=== PATIENT | male | born 1965 | race Caucasian/White ===

== ENCOUNTER 2020-10-20 11:11 | Outpatient (REF) | payer OTHER, SELFPAY ==
[2020-10-20 12:56] LABS: MANUAL DIFF FLAG NO
[2020-10-20 12:59] LABS: Basophils Percent Auto 0.4 % (0-2); Eosinophils Percent Auto 0.4 % (0-4); Hematocrit 41.1 % (42-52); Hemoglobin 13.9 g/dl (14.0-18.0); Lymphocytes Absolute Auto 1.1 X10*3/uL (1.2-4.9); Lymphocytes Percent Auto 42.8 % (20-40); Mean Corpuscular HGB Conc 33.8 g/dl (31.0-36.0); Mean Corpuscular Hemoglobin 29.7 pg (27.0-33.0); Mean Corpuscular Volume 87.8 fL (80-98); Mean Platelet Volume 8.9 fL (9.4-12.4); Monocytes Absolute Auto 0.3 X10*3/uL (0.1-1.2); Monocytes Percent Auto 9.7 % (2-11); Neutrophils Absolute Auto 1.2 X10*3/uL (2.0-8.3); Neutrophils Percent Auto 46.7 % (45-73); Platelet Count 154 X10*3/uL (160-400); Red Blood Count 4.68 X10*6/uL (4.60-5.80); Red Cell Distribution Width 12.7 % (11.0-16.0); White Blood Count 2.6 X10*3/uL (4.8-10.8)
[2020-10-20 13:23] LABS: Alanine Aminotransferase 44 U/L (0-40); Albumin Level 4.6 g/dL (3.5-5.0); Alkaline Phosphatase 63 U/L (39-117); Amylase 59 U/L (28-100); Anion Gap 12 (12-20); Aspartate Amino Transferase 25 U/L (5-37); Bilirubin Total 0.5 mg/dL (0.0-1.0); Blood Urea Nitrogen 15 mg/dL (9-16); Calcium 9.6 mg/dL (8.4-10.2); Carbon Dioxide 29 mmol/L (22-29); Chloride 104 mmol/L (96-108); Estimated Glomerular Filt Rate > 60; Glucose Random 114 mg/dL (60-115); Lipase 31 U/L (8-78); Potassium 4.1 mmol/L (3.3-5.1); Sodium 141 mmol/L (135-145); Total Protein 7.1 g/dL (6.5-8.0)
== END 2020-10-20 11:12 | disposition home or self-care (01) ==
LOC: HO.MANLDS 11:11
PROVIDERS: PCP Internal Medicine; Visit Provider Physician Assistant
DX: Z00.00 Encounter for general adult medical examination without abnormal findings (principal); K82.8 Other specified diseases of gallbladder
CPT/HCPCS: 36415; 80053; 82150; 83690; 85025

== ENCOUNTER 2020-10-26 08:42 | Outpatient (REF) | payer OTHER, SELFPAY ==
[2020-10-26 11:44] LABS: Cholesterol 173 mg/dL; HDL Cholesterol 41 mg/dL; LDL Cholesterol Calculated 105 mg/dl; Triglycerides 138 mg/dL
== END 2020-10-26 08:43 | disposition home or self-care (01) ==
LOC: HO.MANLDS 08:42
PROVIDERS: PCP Internal Medicine; Visit Provider Physician Assistant
DX: Z00.00 Encounter for general adult medical examination without abnormal findings (principal)
CPT/HCPCS: 36415; 80061

== ENCOUNTER 2022-02-27 08:32 | Outpatient (REF) | payer OTHER, SELFPAY ==
[2022-02-27 11:05] LABS: MANUAL DIFF FLAG NO
[2022-02-27 11:10] LABS: Basophils Percent Auto 0.4 % (0-2); Eosinophils Percent Auto 0.4 % (0-4); Hematocrit 42.2 % (42.0-52.0); Hemoglobin 14.1 g/dl (14.0-18.0); Lymphocytes Absolute Auto 1.5 X10*3/uL (1.2-4.9); Lymphocytes Percent Auto 51.6 % (20-40); Mean Corpuscular HGB Conc 33.4 g/dl (31.0-36.0); Mean Corpuscular Hemoglobin 29.3 pg (27.0-33.0); Mean Corpuscular Volume 87.7 fL (80.0-98.0); Mean Platelet Volume 8.7 fL (9.4-12.4); Monocytes Absolute Auto 0.3 X10*3/uL (0.1-1.2); Monocytes Percent Auto 12.1 % (2-11); Neutrophils Percent Auto 35.5 % (45-73); Platelet Count 171 X10*3/uL (160-400); Red Blood Count 4.81 X10*6/uL (4.60-5.80); Red Cell Distribution Width 12.5 % (11.0-16.0); White Blood Count 2.8 X10*3/uL (4.8-10.8)
[2022-02-27 11:15] LABS: Estimated Average Glucose 117 mg/dL; Hemoglobin A1c % 5.7 %
[2022-02-27 11:28] LABS: Alanine Aminotransferase 60 U/L (0-40); Albumin Level 4.5 g/dL (3.5-5.0); Alkaline Phosphatase 75 U/L (39-117); Amylase 54 U/L (28-100); Anion Gap 12 (12-20); Aspartate Amino Transferase 30 U/L (5-37); Bilirubin Total 0.6 mg/dL (0.0-1.0); Blood Urea Nitrogen 17 mg/dL (9-16); C Reactive Protein 0.31 mg/dL (< or = 0.50); Calcium 9.4 mg/dL (8.4-10.2); Carbon Dioxide 30 mmol/L (22-29); Chloride 104 mmol/L (96-108); Cholesterol 202 mg/dL; Estimated Glomerular Filt Rate > 60; Glucose Random 120 mg/dL (60-115); HDL Cholesterol 40 mg/dL; LDL Cholesterol Calculated 130 mg/dl; Lactate Dehydrogenase 147 U/L (118-273); Lipase 30 U/L (8-78); Potassium 3.8 mmol/L (3.3-5.1); Sodium 142 mmol/L (135-145); Triglycerides 163 mg/dL
[2022-02-27 11:51] LABS: Erythrocyte Sedimentation Rate 10 MM/HR (0-15)
== END 2022-02-27 08:33 | disposition home or self-care (01) ==
LOC: HO.MANLDS 08:32
PROVIDERS: Visit Provider Physician Assistant
DX: Z00.00 Encounter for general adult medical examination without abnormal findings (principal); R10.12 Left upper quadrant pain
CPT/HCPCS: 36415; 80053; 80061; 82150; 83036; 83615; 83690; 85025; 85652; 86140

== ENCOUNTER 2024-10-28 14:33 | Outpatient (AMB) | payer OTHER, SELFPAY ==
--- OUTSIDE RECORDS SUMMARY | 2024-10-28 15:54 | XMS_ITS | Encounter Summary ---
Author Organization [facility] Address [address] [place] [address] Phone Care Team Providers Care Rivet Sticker Name Role Phone JaquelinAsher carballo Primary Care Provider [phone] Alfreda Rabago Primary Care Provider [phone] Asher Navas DO Primary Care Provider [phone] Encounter Details Date Type Department Care Team (Latest Contact Info) Description 03/18/2018 Transcribe Orders [facility] [address] [place] [address] Lamar Morgan PA-C [address] [place] [address] Gastroesophageal reflux disease, esophagitis presence not specified (Primary Dx); Hyperlipidemia, unspecified hyperlipidemia type; Routine general medical examination at a health care facility Social History Tobacco Use Types Packs/Day Years Used Date Smoking Tobacco: Never Smokeless Tobacco: Never Alcohol Use Standard Drinks/Week Comments Yes 4 (1 standard drink = 0.6 oz pur e alcohol) Sex and Gender Information Value Date Recorded Sex Assigned at Male 09/26/2019 11:04 AM EDT Legal Sex Male 9:38 PM EDT Gender Identity Male 09/26/2019 11:04 AM EDT Sexual Orientation Straight 09/26/2019 11 :04 AM EDT documented as of this encounter Plan of Treatment Not on file documented as of this encounter Results * PSA (screening) (03/18/2018 9:52 AM EST) PSA 1.20 0 - 4.00 ng/mL [facility] Blood 03/18/2018 9:52 AM EST 03/18/2018 9:58 AM EST June Eddie GOANA LAB BLOOD ORDERABLES Final R esult [facility] [address] [place] [address] * (ABNORMAL) CBC and differential (03/18/2018 9:52 AM EST) WBC 2.48(L) 3.40 - 11.20 K/uL [facility] RBC 4.97 4.50 - 5.50 M/uL [facility] HGB 15.0 13.0 - 17.0 g/dL [facility] HCT 45.5 40.0 - 51.0 % [facility] PLT 176 130 - 400 K/uL [facility] MCV 91.5 79.0 - 98.0 [facility] MCH 30.2 27.0 - 34.8 pg [facility] MCHC 33.0 31.5 - 36.0 g/dL [facility] RDW 12.9 10.8 - 14.6 % [facility] MPV 8.6(L) 9.4 - 12.4 [facility] NRBC 0.00 0.00 /100 WBCs [facility] ABSOLUTE NRBC 0.00 0.00 K/uL [facility] DIFF METHOD Auto [facility] NEUTS 46.4 45.30 - 77.70 % [facility] LYMPHS 41.9(H) 12.30 - 39.70 % [facility] MONOS 10.5 4.10 - 12.80 % [facility] EOS 0.8 0 - 7.2 % [facility] BASOS 0.4 0 - 2.80 % [facility] Granulocytes, immature (%) 0.0 0.0 - 0.9 % [facility] ABSOLUTE NEUTS 1.15(L) 1.40 - 7.70 K/uL [facility] ABSOLUTE LYMPHS 1.04 0.60 - 3.20 K/uL [facility] ABSOLUTE MONOS 0.26 0.11 - 0.59 K/uL [facility] ABSOLUTE EOS 0.02 0.01 - 0.50 K/uL [facility] ABSOLUTE BASOS 0.01 0.00 - 0.08 K/uL [facility] Granulocytes, immature 0.00 0.00 - 0.05 K/uL [facility] Blood 03/18/2018 9:52 AM EST 03/18/2018 9:58 AM EST June Eddie GAONA LAB BLOOD ORDERABLES Final R esult [facility] [address] [place] [address] * (ABNORMAL) Comprehensive metabolic panel (03/18/2018 9:52 AM EST) SODIUM 142 133 - 146 mmol/L [facility] POTASSIUM 3.9 3.3 - 5.1 mmol/L [facility] CHLORIDE 98 96 - 108 mmol/L [facility] CO2 30 21 - 35 mmol/L [facility] BUN 17 6 - 19 mg/dL [facility] CREATININE 0.70 0.5 - 1.5 mg/dL [facility] GLUCOSE 103(H) 70 - 99 mg/dL [facility] ALBUMIN 4.9(H) 3.9 - 4.8 g/dL [facility] TOTAL PROTEIN 7.6 6.5 - 8.0 g/dL [facility] CALCIUM 9.8 8.4 - 10.3 mg/dL [facility] ALKALINE PHOSPHATASE 77 39 - 117 U/L [facility] TOTAL BILIRUBIN 0.5 0.0 - 1.2 mg/dL [facility] AST 26 0 - 37 U/L [facility] ALT 41(H) 0 - 40 U/L [facility] GLOBULIN 2.7 1 - 4.8 g/dL [facility] EGFR 110 >59 mL/min/1.7 3m2 [facility] Comment:If patient is black, multiply result by 1.159. Estimated glomerular filtration rate calculated using the CKD-EPI equation. ANION GAP 18 10 - 20 mmol/L [facility] Blood 03/18/2018 9:52 AM EST 03/18/2018 9:58 AM EST us Lamar Morgan PA-C LAB BLOOD ORDERABLES Final R esult Performing Organization Address City/[facility]/ZIP Co de Phone Number [address] [address] * (ABNORMAL) Lipid panel (03/18/2018 9:52 AM EST) HDL 54 mg/dL [facility] Comment: Interpretation <40 mg/dL: Low HDL cholesterol (major risk factor for CHD) Greater than or equal to 60 mg/dL: High HDL cholesterol ( negative risk factor for CHD) HDL - cholesterol is affected by a number of factors, e.g. smoking, excerise, hormones, sex and age. CHOLESTEROL 214 0 - 240 mg/dL [facility] TRIGLYCERIDES 130 30 - 160 mg/dL [facility] LDL 134(H) 50 - 129 mg/dL [facility] Comment: LDL levels in terms of risk for coronary heart disease: <100 mg/dL: Optimal 100-129 mg/dL: Near or above optimal 130-159 mg/dL: Borderline high 160-189 mg/dL: High >190 mg/dL: Very High CARDIAC RISK RATIO 4.0 3.4 - 5.0 C [facility] Blood 03/18/2018 9:52 AM EST 03/18/2018 9:58 AM EST us Lamar Eddie GAONA LAB BLOOD ORDERABLES Final R esult [address] [address] * Vitamin B12 (03/18/2018 9:52 AM EST) VITAMIN B12 581 232 - 1,245 pg/mL [facility] Blood 03/18/2018 9:52 AM EST 03/18/2018 9:58 AM EST us Lamar Morgan PA-C LAB BLOOD ORDERABLES Final R esult [facility] [address] [place] [address] documented in this encounter Visit Diagnoses Diagnosis Gastroesophageal reflux disease, esophagitis presence not specified- Primary Hyperlipidemia, unspecified hyperlipidemia type Routine general medical examination at a health care facility documented in this encounter Care Teams Rivet Sticker Relationship Specialty Start Date End Date Asher Navas DO PCP - General 03/15/17 01/07/20 Alfreda Rabago PA 6 [facility] [place] [address] PCP - General 01/08/20 03/15/22 Asher Navas DO [address] [place] [address] PCP - General Internal Medicine 03/16/22 documented as of this encounter Additional Source Comments The information contained in this document represents components of the legal health record. It is not the complete legal health record.[facility]
== END 2024-10-28 14:36 | disposition home or self-care (01) ==
LOC: HO.HMGAL 14:33
PROVIDERS: PCP Internal Medicine; Visit Provider Registered Nurse Emergency
DX: J30.89 Other allergic rhinitis (principal)
CPT/HCPCS: 95117; 95165

== ENCOUNTER 2025-02-02 09:18 | Outpatient (AMB) | payer OTHER, SELFPAY ==
--- OUTSIDE RECORDS SUMMARY | 2025-02-02 10:22 | XMS_ITS | Encounter Summary ---
Author Organization [facility] Address [address] [place] [address] Phone Care Team Providers Care Electric Motor Assembler And Tester Name Role Phone JaquelinAsher carballo Chu PALMA Primary Care Provider [phone] Alfreda Rabago Primary Care Provider [phone] Asher Navas DO Primary Care Provider [phone] Encounter Details Date Type Department Care Team (Latest Contact Info) Description 03/18/2018 Transcribe Orders [address] [address] Lamar Morgan PA-C [address] [place] [address] [email or web address] Gastroesophageal reflux disease, esophagitis presence not specified [...] EST) PSA 1.20 0 - 4.00 ng/mL [facility] Blood 03/18/2018 9:52 AM EST 03/18/2018 9:58 AM EST June Eddie GAONA LAB BLOOD BKR ORDERABLES Fin al Result [address] [address] * (ABNORMAL) CBC and differential (03/18/2018 9:52 AM EST) WBC 2.48(L) 3.40 - 11.20 K/uL [facility] RBC 4.97 4.50 - 5.50 M/uL [facility] HGB 15.0 13.0 - 17.0 g/dL [facility] HCT 45.5 40.0 - 51.0 % [facility] PLT 176 130 - 400 K/uL [facility] MCV 91.5 79.0 - 98.0 fL [facility] MCH 30.2 27.0 - 34.8 pg [facility] MCHC 33.0 31.5 - 36.0 g/dL [facility] RDW 12.9 10.8 - 14.6 % [facility] MPV 8.6(L) 9.4 - 12.4 fl [facility] NRBC 0.00 0.00 /100 WBCs [facility] ABSOLUTE NRBC 0.00 0.00 K/uL [facility] DIFF METHOD Auto [facility] NEUTS 46.4 45.30 - 77.70 % [facility] LYMPHS 41.9(H) 12.30 - 39.70 % [facility] MONOS 10.5 4.10 - 12.80 % [facility] EOS 0.8 0 - 7.2 % [facility] BASOS 0.4 0 - 2.80 % [facility] Granulocytes, immature (%) 0.0 0.0 - 0.9 % [facility] ABSOLUTE NEUTS 1.15(L) 1.40 - 7.70 K/uL [facility] ABSOLUTE LYMPHS 1.04 0.60 - 3.20 K/uL [facility] ABSOLUTE MONOS 0.26 0.11 - 0.59 K/uL [facility] ABSOLUTE EOS 0.02 0.01 - 0.50 K/uL [facility] ABSOLUTE BASOS 0.01 0.00 - 0.08 K/uL [facility] Granulocytes, immature 0.00 0.00 - 0.05 K/uL [facility] Blood 03/18/2018 9:52 AM EST 03/18/2018 9:58 AM EST June Eddie GAONA LAB BLOOD BKR ORDERABLES Boris al Result [address] [address] * (ABNORMAL) Comprehensive metabolic panel (03/18/2018 9:52 AM EST) SODIUM 142 133 - 146 mmol/L [facility] POTASSIUM 3.9 3.3 - 5.1 mmol/L [facility] CHLORIDE 98 96 - 108 mmol/L [facility] CO2 30 21 - 35 mmol/L [facility] BUN 17 6 - 19 mg/dL [facility] CREATININE 0.70 0.5 - 1.5 mg/dL [facility] GLUCOSE 103(H) 70 - 99 mg/dL [facility] ALBUMIN 4.9(H) 3.9 - 4.8 g/dL [facility] TOTAL PROTEIN 7.6 6.5 - 8.0 g/dL [facility] CALCIUM 9.8 8.4 - 10.3 mg/dL [facility] ALKALINE PHOSPHATASE 77 39 - 117 U/L [facility] TOTAL BILIRUBIN 0.5 0.0 - 1.2 mg/dL [facility] AST 26 0 - 37 U/L [facility] ALT 41(H) 0 - 40 U/L [facility] GLOBULIN 2.7 1 - 4.8 g/dL [facility] EGFR 110 >59 mL/min/1.7 3m2 [facility] Comment:If patient is black, multiply result by 1.159. Estimated glomerular filtration rate calculated using the CKD-EPI equation. ANION GAP 18 10 - 20 mmol/L [facility] Blood 03/18/2018 9:52 AM EST 03/18/2018 9:58 AM EST Lamar Eddie GAONA LAB BLOOD BKR ORDERABLES Fin al Result Performing Organization Address City/[facility] Co de Phone Number [address] [address] * (ABNORMAL) Lipid panel (03/18/2018 9:52 AM EST) HDL 54 mg/dL [facility] Comment: Interpretation <40 mg/dL: Low HDL cholesterol (major risk factor for CHD) Greater than or equal to 60 mg/dL: High HDL cholesterol ( negative risk factor for CHD) HDL - cholesterol is affected by a number of factors, e.g. smoking, excerise, hormones, sex and age. CHOLESTEROL 214 0 - 240 mg/dL [facility] TRIGLYCERIDES 130 30 - 160 mg/dL [facility] LDL 134(H) 50 - 129 mg/dL [facility] Comment: LDL levels in terms of risk for coronary heart disease: <100 mg/dL: Optimal 100-129 mg/dL: Near or above optimal 130-159 mg/dL: Borderline high 160-189 mg/dL: High >190 mg/dL: Very High CARDIAC RISK RATIO 4.0 3.4 - 5.0 C [facility] Blood 03/18/2018 9:52 AM EST 03/18/2018 9:58 AM EST Lamar Eddie GAONA LAB BLOOD BKR ORDERABLES Fin al Result Performing Organization Address City/[facility]/ZIP Co de Phone Number [address] [address] * Vitamin B12 (03/18/2018 9:52 AM EST) VITAMIN B12 581 232 - 1,245 pg/mL [facility] Blood 03/18/2018 9:52 AM EST 03/18/2018 9:58 AM EST June Eddie GAONA LAB BLOOD BKR ORDERABLES Fin al Result [address] [address] documented in this encounter Visit Diagnoses Diagnosis Gastroesophageal reflux disease, esophagitis presence not specified- Primary Hyperlipidemia, unspecified hyperlipidemia type Routine general medical examination at a health care facility documented in this encounter Care Teams Electric Motor Assembler And Tester Relationship Specialty Start Date End Date Asher Navas DO PCP - General 03/15/17 01/07/20 Alfreda Rabago PA [address] [place] [address] PCP - General 01/08/20 03/15/22 Asher Navas DO [address] [place] [address] PCP - General Internal Medicine 03/16/22 documented as of this encounter Additional Source Comments The information contained in this document represents components of the legal health record. It is not the complete legal health record.[facility]
--- OUTSIDE RECORDS SUMMARY | 2025-02-02 10:22 | XMS_ITS | Encounter Summary ---
Author Organization [facility] Address [address] [place] [address] Phone Care Team Providers Care Scowman Name Role Phone Asher Navas DO Primary Care Provider [phone] Alfreda Rabago Primary Care Provider [phone] Asher Navas DO Primary Care Provider [phone] Encounter Details Date Type Department Care Team (Late st Contact Info) Description 11/06/2017 Procedure Pass [facility], Ct Scan - [address] [address] Social History Tobacco Use Types Packs/Day Years Used Date Smoking Tobacco: Never Assessed Sex and Gender Information Value Date Recorded Sex Assigned at Male 09/26/2019 11:04 AM EDT Legal Sex Male 9:38 PM EDT Gender Identity Male 09/26/2019 11:04 AM EDT Sexual Orientation Straight 09/26/2019 11 :04 AM EDT documented as of this encounter Plan of Treatment Not on file documented as of this encounter Visit Diagnoses Not on filedocumented in this encounter Care Teams Scowman Relationship Specialty Start Date End Date Asher Navas DO [email or web address] PCP - General 03/15/17 01/07/20 Alfreda Rabago PA 6 [facility] [place] [address] [place] [address] PCP - General 01/08/20 03/15/22 Asher Navas DO [address] [place] [address] [email or web address] PCP - General Internal Medicine 03/16/22 documented as of this encounter Additional Source Comments The information contained in this document represents components of the legal health record. It is not the complete legal health record.[facility]
--- OUTSIDE RECORDS SUMMARY | 2025-02-02 10:22 | XMS_ITS | Encounter Summary ---
Author Organization [facility] Address [address] [place] [address] Phone Care Team Providers Care Auto Salvage Worker Name Role Phone Alfreda Rabago Primary Care Provider [phone] Asher Navas DO Primary Care Provider [phone] Encounter Details Date Type Department Care Team (Latest Contact Info) Description 03/02/2022 Transcribe Orders Virtual Department [address] [place] [address] Alfreda Rabago PA 6 [facility] [place] [address] Abdominal pain, unspecified abdominal location (Primary Dx) Social History Tobacco Use Types Packs/Day Years [...] documented as of this encounter Results * US ABDOMEN COMPLETE (ADULT) (03/16/2022 8:38 AM EST) Anatomical Region Laterality Modality Abdomen Ultrasound 03/16/2022 1:21 PM EST Impressions 03/16/2022 7:53 PM EST -Cholelithiasis without cholecystitis or bile duct dilation. -Apparent 6 mm nondependent polypoid focus along the anterior gallbladder wall, which may be artifactual, though consider follow-up ultrasound in 6 months to reassess. -Hepatic steatosis. A clinically significant result was communicated and documented via a closed loop communication system. Narrative 03/16/2022 7:53 PM EST US ABDOMEN COMPLETE (ADULT) TECHNIQUE: Abdominal Ultrasound Complete. COMPARISON: CT abdomen/pelvis 11/08/2017. FINDINGS: Liver: Diffuse parenchymal echogenicity. No focal lesions. Main Portal Vein: Patent with normal direction of flow. Gallbladder: Cholelithiasis. 6 mm nondependent polypoid focus along the anterior gallbladder wall marked by calipers (static image 42 of 72). Lambert's Sign: Negative. Biliary: Normal. No intrahepatic or extrahepatic biliary ductal dilatation. The common bile duct measures 6 mm. Pancreas: Incompletely visualized. Spleen: Normal. No splenomegaly. Kidneys: Benign right renal cyst. No stones or hydronephrosis. Aorta: Normal, where visualized sonographically. IVC: Normal intrahepatic segment. Procedure Note Ishan Gonzalez MD - 03/16/2022 US ABDOMEN COMPLETE (ADULT) TECHNIQUE: Abdominal Ultrasound Complete. COMPARISON: CT abdomen/pelvis 11/08/2017. FINDINGS: Liver: Diffuse parenchymal echogenicity. No focal lesions. Main Portal Vein: Patent with normal direction of flow. Gallbladder: Cholelithiasis. 6 mm nondependent polypoid focus along theanterior gallbladder wall marked by calipers (static image 42 of 72). Lambert's Sign: Negative. Biliary: Normal. No intrahepatic or extrahepatic biliary ductaldilatation. The common bile duct measures 6 mm. Pancreas: Incompletely visualized. Spleen: Normal. No splenomegaly. Kidneys: Benign right renal cyst. No stones or hydronephrosis. Aorta: Normal, where visualized sonographically. IVC: Normal intrahepatic segment. IMPRESSION: -Cholelithiasis without cholecystitis or bile duct dilation. -Apparent 6 mm nondependent polypoid focus along the anterior gallbladderwall, which may be artifactual, though consider follow-up ultrasound in 6months to reassess. -Hepatic steatosis. A clinically significant result was communicated and documented via [employer] communication system. us Alfreda HENRIQUEZ IMG US ABDOMEN Final Resul t documented in this encounter Visit Diagnoses Diagnosis Abdominal pain, unspecified abdominal location- Primary Abdominal pain, unspecified abdominal location documented in this encounter Care Teams Auto Salvage Worker Relationship Specialty Start Date End Date Alfreda Rabago PA 6 [facility] [place] [address] PCP - General 01/08/20 03/15/22 Asher Navas DO [address] [place] [place] [address] [email or web address] PCP - General Internal Medicine 03/16/22 documented as of this encounter Additional Source Comments The information contained in this document represents components of the legal health record. It is not the complete legal health record.[facility]
--- OUTSIDE RECORDS SUMMARY | 2025-02-02 10:22 | XMS_ITS | Encounter Summary ---
Author Organization [facility] Address [address] [place] [address] Phone Care Team Providers Care Passenger Interline Clerk Name Role Phone JaquelinAsher carballo Primary Care Provider [phone] Alfreda Rabago Primary Care Provider [phone] Yosef Asher Sage DO Primary Care Provider [phone] Encounter Details Date Type Department Care Team (Latest Contact Info) Description 11/06/2017 Transcribe Orders [address] [address] Lamar Morgan PA-C [address] [place] [address] [email or web address] Diarrhea, unspecified type (Primary Dx); Stomach ache Social History Tobacco Use Types Packs/Day Years [...] documented as of this encounter Results * Stool culture (11/07/2017 8:22 AM EDT) Specimen Source/ Description STOOL STOOL [facility] Special Requests None [facility] Culture/Test NO SALMONELLA, SHIGELLA OR CAMPYLOBACTER ISOLATED [facility] Report Status 11/10/2017 FINAL [facility] Stool (Stool) 11/07/2017 8:2 2 AM EDT 11/07/2017 8:48 AM EDT June Eddie HENRIQUEZ LAB MICROBIOLOGY CULTURE ORD ERABLES Final Result Performing Organization Address City/[facility]/ZIP Co de Phone Number [address] [address] * Giardia antigen screen (11/07/2017 8:22 AM EDT) ST GIARDIA ANTIGEN Negative Negative [facility] DPT OF LAB MED AND PAT+ Stool (Stool) 11/07/2017 8:2 2 AM EDT 11/07/2017 8:47 AM EDT June Eddie PA LAB BODY FLUIDS AND STOOL OR DERABLES Final Result Performing Organization Address City/[facility]/ZIP Co de Phone Number [facility] DPT OF LAB MED AND PAT+ [address] [place] [address] * C. difficile PCR (11/07/2017 8:22 AM EDT) C.DIFFICILE PCR Negative Negative [facility] C.DIFFICILE STRAIN PRESUMPTIVE NEGATIVE PRESUMPTIVE NEGATIVE [facility] Comment:Detection of 027/NAP 1/BI strains of C.difficile is presumptive and is solely for epidemiological purposes and is not intended to guide or monitor treatment of infections. Stool (Stool) 11/07/2017 8:2 2 AM EDT 11/07/2017 8:47 AM EDT June Eddie HENRIQUEZDipti LAB BODY FLUIDS AND STOOL OR DERABLES Final Result Performing Organization Address City/[facility]/ZIP Co de Phone Number [facility] [address] [place] [address] * (ABNORMAL) Urinalysis with sediment (11/06/2017 11:03 AM EDT) WBC 0-4(A) NONE SEEN /hpf [facility] RBC 0-2(A) NONE SEEN /hpf [facility] URINE EPITHELIAL 0-4(A) NONE SEEN [facility] MUCUS 2+(A) NONE SEEN /hpf [facility] BACTERIA Trace(A) NONE SEEN [facility] COLOR Yellow Yellow [facility] CLARITY Clear [facility] GLUCOSE Negative Negative [facility] BILI Negative Negative [facility] KETONES Negative Negative [facility] SPECIFIC GRAVITY 1.010 1.005 - 1.030 [facility] BLOOD Negative Negative [facility] PH 8.0 5.0 - 8.0 [facility] Protein-UA Trace(A) Negative [facility] NITRITE Negative Negative [facility] Leukocyte esterase, ur Negative Negative [facility] Urine (Urine) 11/06/2017 11: 03 AM EDT 11/06/2017 11:20 AM EDT June Eddie GAONA LAB URINE ORDERABLES Final R esult Performing Organization Address City/State/[facility] Co de Phone Number [facility] [address] [place] [address] * (ABNORMAL) CBC and differential (11/06/2017 11:03 AM EDT) WBC 2.39(L) 3.40 - 11.20 K/uL [facility] RBC 4.64 4.50 - 5.50 M/uL [facility] HGB 13.9 13.0 - 17.0 g/dL [facility] HCT 42.1 40.0 - 51.0 % [facility] PLT 152 130 - 400 K/uL [facility] MCV 90.7 79.0 - 98.0 fL [facility] MCH 30.0 27.0 - 34.8 pg [facility] MCHC 33.0 31.5 - 36.0 g/dL [facility] RDW 12.8 10.8 - 14.6 % [facility] MPV 9.5 9.4 - 12.4 fl [facility] NRBC 0.00 /100 WBCs [facility] ABSOLUTE NRBC 0.00 K/uL [facility] DIFF METHOD Auto [facility] NEUTS 54.9 45.30 - 77.70 % [facility] LYMPHS 36.8 12.30 - 39.70 % [facility] MONOS 7.9 4.10 - 12.80 % [facility] EOS 0.0 0 - 7.2 % [facility] BASOS 0.4 0 - 2.80 % [facility] Granulocytes, immature (%) 0.0 0.0 - 0.9 % [facility] ABSOLUTE NEUTS 1.31(L) 1.40 - 7.70 K/uL [facility] ABSOLUTE LYMPHS 0.88 0.60 - 3.20 K/uL [facility] ABSOLUTE MONOS 0.19 0.11 - 0.59 K/uL [facility] ABSOLUTE EOS 0.00(L) 0.01 - 0.50 K/uL [facility] ABSOLUTE BASOS 0.01 0.00 - 0.08 K/uL [facility] Granulocytes, immature 0.00 0.00 - 0.05 K/uL [facility] Blood 11/06/2017 11:0 3 AM EDT 11/06/2017 11:20 AM EDT June Eddie GAONA LAB BLOOD BKR ORDERABLES Fin al Result Performing Organization Address City/State/[facility] Co de Phone Number [address] [address] * (ABNORMAL) Comprehensive metabolic panel (11/06/2017 11:03 AM EDT) SODIUM 142 133 - 146 mmol/L [facility] POTASSIUM 4.1 3.3 - 5.1 mmol/L [facility] CHLORIDE 101 96 - 108 mmol/L [facility] CO2 27 21 - 35 mmol/L [facility] BUN 12 6 - 19 mg/dL [facility] CREATININE 0.80 0.5 - 1.5 mg/dL [facility] GLUCOSE 103(H) 70 - 99 mg/dL [facility] ALBUMIN 4.5 3.9 - 4.8 g/dL [facility] TOTAL PROTEIN 7.7 6.5 - 8.0 g/dL [facility] CALCIUM 10.0 8.4 - 10.3 mg/dL [facility] ALKALINE PHOSPHATASE 65 39 - 117 U/L [facility] TOTAL BILIRUBIN 0.3 0.0 - 1.2 mg/dL [facility] AST 17 0 - 37 U/L [facility] ALT 17 0 - 40 U/L [facility] GLOBULIN 3.2 1 - 4.8 g/dL [facility] EGFR 104 >59 mL/min/1.7 3m2 [facility] Comment:If patient is black, multiply result by 1.159. Estimated glomerular filtration rate calculated using the CKD-EPI equation. ANION GAP 18 10 - 20 mmol/L [facility] Blood 11/06/2017 11:0 3 AM EDT 11/06/2017 11:20 AM EDT June Eddie GAONA LAB BLOOD BKR ORDERABLES Fin al Result Performing Organization Address City/State/[facility] Co de Phone Number [facility] [address] [place] [address] documented in this encounter Visit Diagnoses Diagnosis Diarrhea, unspecified type- Primary Stomach ache Dyspepsia and other specified disorders of function of stomach documented in this encounter Care Teams Passenger Interline Clerk Relationship Specialty Start Date End Date Asher Navas DO [email or web address] PCP - General 03/15/17 01/07/20 Alfreda Rabago PA [address] [place] [address] PCP - General 01/08/20 03/15/22 Asher Navas DO [address] [place] [address] [email or web address] PCP - General Internal Medicine 03/16/22 documented as of this encounter Additional Source Comments The information contained in this document represents components of the legal health record. It is not the complete legal health record.[facility]
--- OUTSIDE RECORDS SUMMARY | 2025-02-02 10:22 | XMS_ITS | Encounter Summary ---
Author Organization [facility] Address [address] [place] [address] Phone Care Team Providers Care Day Care Worker Name Role Phone Asher Navas DO Primary Care Provider [phone] Alfreda Rabago Primary Care Provider [phone] Asher Navas DO Primary Care Provider [phone] Encounter Details Date Type Department Care Team (Late st Contact Info) Description 11/23/2017 Procedure Pass [facility] Endoscopy Admitting Dept Virtual Department [address] [place] [address] Social History Tobacco Use Types Packs/Day Years [...] on filedocumented in this encounter Care Teams Day Care Worker Relationship Specialty Start Date End Date Asher Navas DO PCP - General 03/15/17 01/07/20 Alfreda Rabago PA [address] [place] [address] PCP - General 01/08/20 03/15/22 Asher Navas DO [address] [place] [address] [email or web address] PCP - General Internal Medicine 03/16/22 documented as of this encounter Additional Source Comments The information contained in this document represents components of the legal health record. It is not the complete legal health record.[facility]
--- OUTSIDE RECORDS SUMMARY | 2025-02-02 10:22 | XMS_ITS | Encounter Summary ---
Author Organization [facility] Address [address] [place] [address] Phone Care Team Providers Care Vp Respiratory Name Role Phone Asher Navas DO Primary Care Provider [phone] Alfreda Rabago Primary Care Provider [phone] Asher Navas DO Primary Care Provider [phone] Reason for Referral * Physical Therapy (Routine) - Closed Specialty Diagnoses / Procedures Referred By Ynes cantu Referred To Contact Physical Therapy Diagnoses Encounter for rehabilitation Lamar Morgan PA-C Phone: tel: fax: [email or web address] [address] [place] [address] Phone: tel: Referral ID Status Reason Start Date Expiration Date Visits Re quested Visits Authorized [id number] Closed 11/06/2017 11/06/2018 1 1 Encounter Details Date Type Department Care Team (Late st Contact Info) Description 11/06/2017 Transcribe Orders [facility] [address] [place] [address] Asher Navas DO [address] [facility] [place] [address] Encounter for rehabilitation (Primary Dx) Social History Tobacco Use Types Packs/Day Years Used Date Smoking Tobacco: Never Assessed Sex and Gender Information Value Date Recorded Sex Assigned at Male 09/26/2019 11:04 AM EDT Legal Sex Male 9:38 PM EDT Gender Identity Male 09/26/2019 11:04 AM EDT Sexual Orientation Straight 09/26/2019 11 :04 AM EDT documented as of this encounter Plan of Treatment Scheduled Referrals Name Type Priority Associated Diagnoses Orde r Schedule Ambulatory referral to [facility] Physical Therapy Outpatient Referral Routine Encounter for rehabilitation Ordered: 11/06/2017 documented as of this encounter Visit Diagnoses Diagnosis Encounter for rehabilitation- Primary documented in this encounter Care Teams Vp Respiratory Relationship Specialty Start Date End Date Asher Navas DO [email or web address] PCP - General 03/15/17 01/07/20 Alfreda Rabago PA [address] [place] [address] PCP - General 01/08/20 03/15/22 Asher Navas DO [address] [place] [address] [email or web address] PCP - General Internal Medicine 03/16/22 documented as of this encounter Additional Source Comments The information contained in this document represents components of the legal health record. It is not the complete legal health record.[facility]
--- OUTSIDE RECORDS SUMMARY | 2025-02-02 10:22 | XMS_ITS | Encounter Summary ---
Author Organization [facility] Address [address] [place] [address] Phone Care Team Providers Care Ammonium Nitrate Neutralizer Name Role Phone Asher Navas Primary Care Provider [phone] Alfreda Rabago Primary Care Provider [phone] Yosef Asher Sage DO Primary Care Provider [phone] Encounter Details Date Type Department Care Team (Latest Contact Info) Description 11/06/2017 Transcribe Orders [address] [address] Lamar Morgan PA-C [address] [place] [address] [email or web address] Diarrhea, unspecified type (Primary Dx) Social History Tobacco Use Types [...] documented as of this encounter Results * Ova and parasites, stool (11/07/2017 8:22 AM EDT) Specimen Source/ Description STOOL STOOL [facility] Special Requests None [facility] DIRECT EXAM NO PARASITES FOUND BY DIRECT OR CONCENTRATION METHODS [facility] DIRECT EXAM No parasites found by Trichrome Stain [facility] Report Status 11/16/2017 FINAL [facility] Stool (Stool) 11/07/2017 8:2 2 AM EDT 11/07/2017 8:48 AM EDT June Eddie GAONA LAB BODY FLUIDS AND STOOL OR DERABLES Final Result Performing Organization Address City/State/[facility] Co de Phone Number [facility] [address] [place] [address] documented in this encounter Visit Diagnoses Diagnosis Diarrhea, unspecified type- Primary documented in this encounter Care Teams Ammonium Nitrate Neutralizer Relationship Specialty Start Date End Date Asher Navas DO [email or web address] PCP - General 03/15/17 01/07/20 Alfreda Rabago PA [address] [place] [address] PCP - General 01/08/20 03/15/22 Asher Navas DO [address] [place] [address] [email or web address] PCP - General Internal Medicine 03/16/22 documented as of this encounter Additional Source Comments The information contained in this document represents components of the legal health record. It is not the complete legal health record.[facility]
--- OUTSIDE RECORDS SUMMARY | 2025-02-02 10:22 | XMS_ITS | Encounter Summary ---
Author Organization [facility] Address [address] [place] [address] Phone Care Team Providers Care Management And Budget Analyst Name Role Phone Asher Navas Chu PALMA Primary Care Provider [phone] Encounter Details Date Type Department Care Team (Late st Contact Info) Description 06/02/2022 Procedure Pass [facility] Endoscopy Admitting Dept Virtual Department [address] [place] [address] Social History Tobacco Use Types Packs/Day Years Used Date Smoking Tobacco: Never Smokeless Tobacco: Never Alcohol Use Standard Drinks/Week Comments Yes 14 (1 standard drink = 0.6 oz pu re alcohol) 2 per day Intimate Partner Violence Answer Date R ecorded Are you denied basic needs s uch as food, clothing, or medical care? No 06/02/2022 In the past 12 months have y ou been in a relationship with a person who hurts, threatens, or tries to control you? No 06/02/2022 Are you denied basic needs s uch as food, clothing, or medical care? No 06/02/2022 In the past 12 months have y ou been in a relationship with a person who hurts, threatens, or tries to control you? No 06/02/2022 Sex and Gender Information Value Date Recorded Sex Assigned at Male 09/26/2019 11:04 AM EDT Legal Sex Male 9:38 PM EDT Gender Identity Male 09/26/2019 11:04 AM EDT Sexual Orientation Straight 09/26/2019 11 :04 AM EDT documented as of this encounter Plan of Treatment Not on file documented as of this encounter Visit Diagnoses Not on filedocumented in this encounter Care Teams Management And Budget Analyst Relationship Specialty Start Date End Date Asher Navas DO [email or web address] PCP - General Internal Medicine 03/16/22 documented as of this encounter Additional Source Comments The information contained in this document represents components of the legal health record. It is not the complete legal health record.[facility]
--- OUTSIDE RECORDS SUMMARY | 2025-02-02 10:22 | XMS_ITS | Clinical Summary ---
Author Organization [facility] Address [address] [address] Phone Care Team Providers Care Junior High Math Teacher Name Role Phone Guanako Adams Primary Care Provider [phone] Allergies Active Allergy Reactions Criticality Noted Date Comments Cat Hair Standardized Allergenic Extract Sneezing 11/20/2017 Lisinopril Cough 03/28/2022 Mold Extracts Sneezing 11/20/2017 Mildew Pollens Extract Sneezing 11/20/2017 Medications omeprazole (PRILOSEC) 20 MG capsuleIndicat ions:gastroeso phageal reflux disease Take 20 mg by mouth daily. Indications: gastroesophageal reflux disease Active sertraline (ZOLOFT) 50 MG tabletIndicati ons:generalize d anxiety disorder Take 50 mg by mouth daily. Indications: Generalized Anxiety Disorder Active atorvastatin (LIPITOR) 20 MG tablet Take 20 mg by mouth daily. 04/13/19 22 Active levocetirizine (XYZAL) 5 MG tablet Take 5 mg by mouth daily. Active losartan (COZAAR) 50 MG tablet Take 50 mg by mouth daily. 04/13/19 22 Active Active Problems Problem Noted Date Diagnosed Date Calculus of gallbladder with out cholecystitis without obstruction 03/27/2022 Polyp of gallbladder 03/27/2022 Family History Medical History Relation Comments Diabetes mellitus Father Kidney disease Father Leukemia Father Colon cancer Maternal Aunt Colon cancer Maternal Uncle Schizophrenia Mother Relation Status Comments Father Alive Maternal Aunt Maternal Uncle Mother Alive Social History Tobacco Use Types Packs/Day Years Used Date Smoking Tobacco: Never Smokeless Tobacco: Never Tobacco Cessation:Counseling Given: Not Answered Alcohol Use Standard Drinks/Week Comments Yes 14 (1 standard drink = 0.6 oz pu re alcohol) 2 per day Education Answer Date Recorded Are you interested in more education? Not on samuel e 07/07/2022 Are you concerned about learning? Not on file 07/07/2022 No 07/07/2022 No 07/07/2022 Digital Access Answer Date Recorded No 08/07/2022 No 08/07/2022 Reliable internet access at home? Not on file 08/07/2022 Device with a working camera? Not on file Intimate Partner Violence Answer Date R ecorded [...] Orientation Straight 09/26/2019 11 :04 AM EDT Last Filed Vital Signs Vital Sign Reading Time Taken Comments Blood Pressure 142/80 09/26/2022 10:46 AM EDT Pulse 90 09/26/2022 10:46 AM EDT Temperature 36.6 C (97.8 F) 09/26/2022 10:46 AM EDT Respiratory Rate 16 06/02/2022 10:43 AM EDT Oxygen Saturation 99% 09/26/2022 10:46 AM EDT Inhaled Oxygen Concentration - - Weight 79.4 kg (175 lb) 09/26/2022 10:46 AM EDT Height 180.3 cm (5' 11 ) 06/01/2022 2:30 PM EDT Body Mass Index 24.41 06/01/2022 2:30 PM EDT Plan of Treatment Health Maintenance Due Date Last Done Comments Adult Td,Tdap Booster 1965 DEPRESSION SCREENING 1979 HEPATITIS C SCREENING 1985 HIV ONE-TIME SCREENING (18-65 YEARS) 1985 PNEUMOCOCCAL VACCINES (50+ years) (1 of 2 - PCV) 1986 ZOSTER VACCINES (1 of 2) 1986 COLOGUARD 2012 FIT TEST 2012 FOBT 2012 SIGMOIDOSCOPY 2012 VIRTUAL COLONOSCOPY 2012 RSV VACCINE (1 - Risk 50-74 years 1-dose series) 2017 BLOOD PRESSURE 03/29/2023 09/26/2022 DIABETIC EYE EXAM 06/11/2024 INFLUENZA VACCINE (#1) 2024 , 12/29/2020, 11/18/2019, Additional history exists COVID-19 VACCINE (2024- season) 2024 12/21/2021, 06/16/2021, 01/05/2021, Additional history exists HEMOGLOBIN A1C 12/11/2024 06/11/2024, 02/14/2024 CREATININE LEVEL 09/19/2025 09/19/2024, , 02/14/2024, Additional history exists POTASSIUM LEVEL 09/19/2025 09/19/2024, 06/11, 02/14/2024, Additional history exists COLONOSCOPY 06/02/2032 06/02/2022, 11/10, 05/05/2016 COLORECTAL CANCER SCREENING 06/02/2032 SMOKING STATUS SCREENING (Once After 26 Yrs) Completed 09/26/2022 HEPATITIS A VACCINES Aged Out No long er eligible based on patient's age to complete this topic HIB VACCINES Aged Out No longer eligi ble based on patient's age to complete this topic MENINGOCOCCAL VACCINES (ACWY) Aged Out No longer eligible based on patient's age to complete this topic MENINGOCOCCAL VACCINES (B) Aged Out N o longer eligible based on patient's age to complete this topic Medical Devices Not on file Procedures Procedure Name Priority Date/Time Associated Diagnosis Comments COMPREHENSIVE METABOLIC PANEL (CMP) Routine 09/19/2024 7:57 AM EDT Uncomplicated alcohol dependence HEMOGLOBIN A1C Routine 06/11/2024 8:02 AM EDT Diabetes mellitus of other type without complication, unspecified whether aquaculture farmer insulin use ENDOSCOPY, COLON 06/02/2022 10:0 1 AM EDT from Last 3 Months or Most Recently Relevant to Health Maintenance Results * (ABNORMAL) Comprehensive metabolic panel (09/19/2024 7:57 AM EDT) SODIUM 142 133 - 146 mmol/L [facility] POTASSIUM 3.9 3.3 - 5.1 mmol/L [facility] CHLORIDE 104 96 - 108 mmol/L [facility] CO2 28 21 - 35 mmol/L [facility] BUN 16 6 - 19 mg/dL [facility] CREATININE 0.90 0.5 - 1.5 mg/dL [facility] GLUCOSE 104(H) 70 - 99 mg/dL [facility] ALBUMIN 4.5 3.9 - 4.8 g/dL [facility] TOTAL PROTEIN 7.2 6.5 - 8.0 g/dL [facility] CALCIUM 9.3 8.4 - 10.3 mg/dL [facility] ALKALINE PHOSPHATASE 76 39 - 117 U/L [facility] TOTAL BILIRUBIN 0.4 0.0 - 1.2 mg/dL [facility] AST 19 0 - 37 U/L [facility] ALT 27 0 - 40 U/L [facility] GLOBULIN 2.7 1 - 4.8 g/dL [facility] EGFR 100 >59 mL/min/1.7 3m2 [facility] Comment:Estimated glomerular filtration rate calculated using the CKD-EPI refit equation. ANION GAP 14 10 - 20 mmol/L [facility] Blood 09/19/2024 7:57 AM EDT 09/19/2024 7:59 AM EDT us Alfreda HENRIQUEZ LAB BLOOD BKR ORDERABLES Fi nal Result [facility] [address] [place] [address] * Hemoglobin A1c (06/11/2024 8:02 AM EDT) HEMOGLOBIN A1C 5.6 4.3 - 5.8 % [facility] Blood 06/11/2024 8:02 AM EDT 06/11/2024 8:05 AM EDT us Alfreda Orlando Rabago PA LAB BLOOD BKR ORDERABLES Fi nal Result [facility] [address] [place] [address] * ENDOSCOPY, COLON (06/02/2022 10:01 AM EDT) Narrative Transcriptions Faustino Patterson MD - 06/02/2022 10:01 AM EDT [facility] Patient Name: Phil Edwards Attending MD:: FAUSTINO PATTERSON MD, Procedure Date: 06/02/2022 10:01 AM Date of : 1965 Age: 57 Admit Type: Outpatient Gender: Male Room: [facility] Referring MD: GUANAKO ADAMS DO Exam Type: Colonoscopy Indications: Surveillance: Personal history of adenomatouspolyps on last colonoscopy 5 years ago Medications: Monitored Anesthesia Care Procedure: Informed consent was obtained from the patientafter discussion of the indications, limitations, alternatives, benefits, and risks of the procedure. Risks specifically discussed include but are not limited to medication reactions, missed lesions, bleeding, perforation, or the need for emergent surgery. Throughout the procedure, the patient's blood pressure, pulse, end-tidal CO2, and oxygensaturations were monitored continuously. The Olympus adult variable colonoscope [id number] #1 was introduced through the anus and advanced to the cecum, identified by the appendiceal orifice, ICvalve and transillumination. The colonoscopy wasperformed without difficulty. Complications: No immediate complications. Findings: The perianal and digital rectal examinations were normal. Pertinent negatives include normal prostate (size, shape, and consistency). A 5 mm polyp was found in the ascending colon. The polyp was semi-pedunculated. The polyp was removed with a cold snare. Resection and retrieval were complete. Verification of patient identificationfor the specimen was done by the physician and nurseusing the patient's name and date. Estimated blood loss was minimal. A 3 mm polyp was found in the sigmoid colon. Thepolyp was sessile. The polyp was removed with a jumbocold forceps. Resection and retrieval were complete. Verification of patient identification for the specimen was done by the physician and nurse usingthe patient's name and date. Estimated blood loss was minimal. The exam was otherwise without abnormality ondirect and retroflexion views. Impression: - One 5 mm polyp in the ascending colon, removedwith a cold snare. Resected and retrieved. - One 3 mm polyp in the sigmoid colon, removed witha jumbo cold forceps. Resected and retrieved. - The examination was otherwise normal on directand retroflexion views. Recommendation: - Discharge patient to home. - Resume previous diet. - Continue present medications. - Await pathology results. - Repeat colonoscopy in 5 years for surveillancebased on pathology results. - Return to my office in 5 years. FAUSTINO PATTERSON MD 06/02/2022 10:38:25 AM This report has been signed electronically. Number of Addenda: 0 Note Initiated On: 06/02/2022 10:01 AM Procedure Code(s): --- Professional --- 58928, Colonoscopy, flexible; with removal of tumor(s), polyp(s), or other lesion(s) by snare technique [id number], 59, Colonoscopy, flexible; with biopsy, single or multiple --- Technical --- 56538, Colonoscopy, flexible; with removal of tumor(s), polyp(s), or other lesion(s) by snare technique 79781, 59, Colonoscopy, flexible; with biopsy, single or multiple Diagnosis Code(s): --- Professional --- Z86.010, Personal history of colonic polyps D12.2, Benign neoplasm of ascending colon D12.5, Benign neoplasm of sigmoid colon --- Technical --- Z86.010, Personal history of colonic polyps D12.2, Benign neoplasm of ascending colon D12.5, Benign neoplasm of sigmoid colon CPT copyright 2021 [employer]. All rights reserved. The codes documented in this report are preliminary and upon hide examiner reviewmay be revised to meet current compliance requirements. Procedure Date: 06/02/2022 10:01:[address] [place] [address] [place] Guanako Adams DO GI PROCEDURE ORDERABLES Final Re sult from Last 3 Months or Most Recently Relevant to Health Maintenance Insurance [address] [place] [address] [facility] Care Teams [employer] Math Teacher Relationship Specialty Start Date End Date Guanako Adams DO [email or web address] PCP - General Internal Medicine 03/16/22 Additional Source Comments The information contained in this document represents components of the legal health record. It is not the complete legal health record.[facility]
--- OUTSIDE RECORDS SUMMARY | 2025-02-02 10:23 | XMS_ITS | Encounter Summary ---
Author Organization [facility] Address [address] [place] [address] Phone Care Team Providers Care Outside Parts Salesman Name Role Phone Asher Navas DO Primary Care Provider [phone] Alfreda Rabago Primary Care Provider [phone] Asher Navas DO Primary Care Provider [phone] Reason for Referral * MRI/CAT Scan - Closed Specialty Diagnoses / Procedures Referred By Ynes cantu Referred To Contact Radiology Diagnoses Generalized abdominal pain Procedures CT Abdomen/Pelvis Lamar Morgan PA-C Phone: tel: fax: mailto: Referral ID Status Reason Start Date Expiration Date Visits Re quested Visits Authorized [id number] Closed 11/07/2017 01/06/2018 1 1 Encounter Details Date Type Department Care Team (Late st Contact Info) Description 11/06/2017 Ancillary Orders Virtual Department [address] [place] [address] Lamar Morgan PA-C [address] [place] [address] [email or web address] Generalized abdominal pain Social History Tobacco Use Types Packs/Day Years [...] documented as of this encounter Results * CT ABDOMEN/PELVIS WITH CONTRAST (11/08/2017 1:15 PM EDT) Anatomical Region Laterality Modality Abdomen, Pelvis Computed Tomogra phy 11/08/2017 1:28 PM EDT Impressions 11/08/2017 1:54 PM EDT No findings of diverticulitis or colitis. Appendix unremarkable. Probable small cysts in the right kidney. Possible tiny foci of cholelithiasis. TOTAL CTDIvol: 5.2 mGy POS - [id number] Edited by: Afsaneh Romero on 11/08/2017 1:40 PM Narrative 11/08/2017 1:54 PM EDT HISTORY: Abdominal pain COMPARISON: None TECHNIQUE: After the administration of oral and intravenous contrast, multidetector CT is obtained from dome of the liver through the inferior pubic rami. Sagittal and coronal reformats generated. Automated exposure control utilized. FINDINGS: Lung bases: No findings of concern. Liver and spleen: Small splenule. Hepatic density is low normal, but similar to spleen. Biliary tree and pancreas: Tiny densities in the gallbladder may indicate small stones or sludge. Pancreas gracile but otherwise unremarkable. Adrenals and : No adrenal masses. Too small to characterize hypodensities in the posterior right kidney are likely early cysts. No clearly worrisome masses. No stones. Prostate not prominently enlarged. Bladder unremarkable. Bowel: There may be trace amount of reflux into the esophagus. Stomach otherwise unremarkable. Duodenum unremarkable. Ileal and jejunal fold patterns unremarkable. Terminal ileum unremarkable. Appendix retrocecal but otherwise unremarkable with the cecum fairly deep in the pelvis. No evidence of colitis or diverticulitis. Only minor early diverticular change suggested. Nodes: No adenopathy detected. Vascular: There is some dilatation of the infrarenal abdominal aorta to maximum diameter of 2.1 cm. At the beginning of this there is soft thrombus which projects into the lumen. No evidence of dissection otherwise suggested. Soft tissues: No ascites, inflammatory change or fluid collection. No bowel-containing hernias. Bones: No findings of concern. Procedure Note Boo John MD - 11/08/2017 HISTORY: Abdominal pain COMPARISON: None TECHNIQUE: After the administration of oral and intravenous contrast,multidetector CT is obtained from dome of the liver through the inferiorpubic rami. Sagittal and coronal reformats generated. Automated exposurecontrol utilized. FINDINGS: Lung bases: No findings of concern. Liver and spleen: Small splenule. Hepatic density is low normal, butsimilar to spleen. Biliary tree and pancreas: Tiny densities in the gallbladder may indicatesmall stones or sludge. Pancreas gracile but otherwise unremarkable. Adrenals and : No adrenal masses. Too small to characterizehypodensities in the posterior right kidney are likely early cysts. Noclearly worrisome masses. No stones. Prostate not prominently enlarged.Bladder unremarkable. Bowel: There may be trace amount of reflux into the esophagus. Stomachotherwise unremarkable. Duodenum unremarkable. Ileal and jejunal foldpatterns unremarkable. Terminal ileum unremarkable. Appendix retrocecalbut otherwise unremarkable with the cecum fairly deep in the pelvis. Noevidence of colitis or diverticulitis. Only minor early diverticularchange suggested. Nodes: No adenopathy detected. Vascular: There is some dilatation of the infrarenal abdominal aorta tomaximum diameter of 2.1 cm. At the beginning of this there is softthrombus which projects into the lumen. No evidence of dissectionotherwise suggested. Soft tissues: No ascites, inflammatory change or fluid collection. Nobowel- containing hernias. Bones: No findings of concern. IMPRESSION: No findings of diverticulitis or colitis. Appendix unremarkable. Probablesmall cysts in the right kidney. Possible tiny foci of cholelithiasis. TOTAL CTDIvol: 5.2 mGy POS - [id number] Edited by: Afsaneh Romero on 11/08/2017 1:40 PM June Eddie GAONA IMG CT ABD/PELVIS Final Resu lt documented in this encounter Visit Diagnoses Diagnosis Generalized abdominal pain Abdominal pain, generalized Generalized abdominal pain Abdominal pain, generalized documented in this encounter Care Teams Outside Parts Salesman Relationship Specialty Start Date End Date Asher Navas DO PCP - General 03/15/17 01/07/20 Alfreda Rabago PA [address] [facility] [place] [address] PCP - General 01/08/20 03/15/22 Asher Navas DO [address] [facility] [place] [address] [email or web address] PCP - General Internal Medicine 03/16/22 documented as of this encounter Additional Source Comments The information contained in this document represents components of the legal health record. It is not the complete legal health record.[facility]
--- OUTSIDE RECORDS SUMMARY | 2025-02-02 10:23 | XMS_ITS | Encounter Summary ---
Author Organization [facility] Address [address] [place] [address] Phone Care Team Providers Care Excelsior Machine Tender Name Role Phone JaquelinAsher carballo Primary Care Provider [phone] Alfreda Rabago Primary Care Provider [phone] Asher Navas DO Primary Care Provider [phone] Encounter Details Date Type Department Care Team (Latest Contact Info) Description 07/24/2017 Transcribe Orders [facility] [address]le[address] [address] Lamar Morgan PA-C [address] [place] [address] [email or web address] Borderline hyperlipidemia (Primary Dx) Social History Tobacco Use Types [...] documented as of this encounter Results * (ABNORMAL) Lipid panel (07/24/2017 8:30 AM EDT) HDL 56 mg/dL [facility] Comment: Interpretation: Risk Level Males Decreased >45 mg/dL Average 40-45 mg/dL Increased <40 mg/dL CHOLESTEROL 177 0 - 240 mg/dL [facility] TRIGLYCERIDES 139 30 - 160 mg/dL [facility] LDL 93 50 - 129 mg/dL [facility] Comment: LDL levels in terms of risk for coronary heart disease: <100 mg/dL: Optimal 100-129 mg/dL: Near or above optimal 130-159 mg/dL: Borderline high 160-189 mg/dL: High >190 mg/dL: Very High CARDIAC RISK RATIO 3.2(L) 3.4 - 5.0 [facility] Blood 07/24/2017 8:30 AM EDT 07/24/2017 8:48 AM EDT June Eddie GAONA LAB BLOOD BKR ORDERABLES Fin al Result [address] [address] * (ABNORMAL) Comprehensive metabolic panel (07/24/2017 8:30 AM EDT) SODIUM 145 133 - 146 mmol/L [facility] POTASSIUM 3.7 3.3 - 5.1 mmol/L [facility] CHLORIDE 103 96 - 108 mmol/L [facility] CO2 31 21 - 35 mmol/L [facility] BUN 21(H) 6 - 19 mg/dL [facility] CREATININE 0.90 0.5 - 1.5 mg/dL [facility] GLUCOSE 92 70 - 99 mg/dL [facility] ALBUMIN 4.3 3.9 - 4.8 g/dL [facility] TOTAL PROTEIN 7.2 6.5 - 8.0 g/dL [facility] CALCIUM 9.1 8.4 - 10.3 mg/dL [facility] ALKALINE PHOSPHATASE 61 39 - 117 U/L [facility] TOTAL BILIRUBIN 0.4 0.0 - 1.2 mg/dL [facility] AST 26 0 - 37 U/L [facility] ALT 34 0 - 40 U/L [facility] GLOBULIN 2.9 1 - 4.8 g/dL [facility] EGFR 99 >59 mL/min/1.7 3m2 [facility] Comment:If patient is black, multiply result by 1.159. The eGFR calculation has changed from the MDRD equation to the CKD-EPI equation as of May 15, 2017. ANION GAP 15 10 - 20 mmol/L [facility] Blood 07/24/2017 8:30 AM EDT 07/24/2017 8:48 AM EDT June Eddie GAONA LAB BLOOD BKR ORDERABLES Fin al Result [facility] [address] [place] [address] documented in this encounter Visit Diagnoses Diagnosis Borderline hyperlipidemia- Primary documented in this encounter Care Teams Excelsior Machine Tender Relationship Specialty Start Date End Date Asher Navas DO [email or web address] PCP - General 03/15/17 01/07/20 Alfreda Rabago PA [address] [place] [address] PCP - General 01/08/20 03/15/22 Asher Navas DO [address] [place] [address] [email or web address] PCP - General Internal Medicine 03/16/22 documented as of this encounter Additional Source Comments The information contained in this document represents components of the legal health record. It is not the complete legal health record.[facility]
--- OUTSIDE RECORDS SUMMARY | 2025-02-02 10:23 | XMS_ITS | Encounter Summary ---
Author Organization [facility] Address [address] [place] [address] Phone Care Team Providers Care Oven Dumper Name Role Phone Asher Navas Primary Care Provider [phone] Alfreda Rabago Primary Care Provider [phone] Asher Navas DO Primary Care Provider [phone] Encounter Details Date Type Department Care Team (Latest Contact Info) Description 01/02/2020 Transcribe Orders Virtual Department [address] [place] [address] Feliz Caldwell MD [address] [place] [id number] [email or web address] Encounter for laboratory testing for COVID-19 virus (Primary Dx) Social History Tobacco Use Types [...] documented as of this encounter Results * COVID-19 PCR Order (01/05/2020 10:13 AM EDT) Specimen Source NASOPHARYNGEAL SWAB (CHIEF MATE) [facility] COVID-19 Comment [id number] [facility] COVID Testing Status Sent to [facility] Micro Lab [facility] Symptomatic? NO [facility] Other 01/05/2020 10:1 3 AM EDT 01/05/2020 10:46 AM EDT us Feliz Caldwell MD LAB GENERAL ORDERABLES Final R esult [facility] [address] [place] [address] documented in this encounter Visit Diagnoses Diagnosis Encounter for laboratory testing for COVID-19 virus- Primary documented in this encounter Care Teams Oven Dumper Relationship Specialty Start Date End Date Asher Navas DO [email or web address] PCP - General 03/15/17 01/07/20 Alfreda Rabago PA [address] [facility] [place] [address] PCP - General 01/08/20 03/15/22 Asher Navas DO [address] [facility] [place] [address] [email or web address] PCP - General Internal Medicine 03/16/22 documented as of this encounter Additional Source Comments The information contained in this document represents components of the legal health record. It is not the complete legal health record.[facility]
== END 2025-02-02 09:21 | disposition home or self-care (01) ==
LOC: HO.HMGAL 09:18
PROVIDERS: PCP Internal Medicine; Visit Provider Registered Nurse Emergency
DX: J30.89 Other allergic rhinitis (principal)
CPT/HCPCS: 95117; 95165